=== PATIENT | male | born 1950 | race Caucasian/White ===

== ENCOUNTER 2022-09-30 18:12 | Observation (INO) | payer OTHER, SELFPAY ==
--- NOTE | ~2022-09-30 | XR_ITS ---
EXAMINATION: XR chest 2V DATE: 09/30/2022 19:26 INDICATION: Fever. Altered mental status. TECHNIQUE: Frontal and lateral views of the chest were obtained. COMPARISON: None. FINDINGS: Debbie B lines are noted, consistent mild pulmonary edema. No pleural effusion or pneumotho rax. The heart size is normal. Median sternotomy wires and mediastinal surgical clips are seen, likel y from prior coronary artery bypass grafting. Calcified left hilar lymph nodes are consistent with ol d granulomatous disease. There are old healed right rib fractures. There is mild chronic anterior wed ging of T11 vertebral body. IMPRESSION: 1. Mild pulmonary edema. Reviewed, dictated and finalized at location A. LE WORKER IMPRESSION: 1. Mild pulmonary edema.
--- NOTE | ~2022-09-30 | CT_ITS ---
EXAMINATION: CT brain wo con DATE: 09/30/2022 23:00 INDICATION: Altered mental status. TECHNIQUE: Computed tomography (CT) of the head was performed without intravenous contrast. The mA wa s adjusted according to patient size. Iterative reconstruction technique was employed. The dose-lengt h product was 681.00 mGy-cm. COMPARISON: None FINDINGS: There are old infarcts in the cerebellum bilaterally. There are old infarcts in the bilater al thalami and bilateral basal ganglia. There is an old infarct involving right frontoparietal region and right insula. There is an old infarct in left occipital lobe. There are scattered areas of low a ttenuation in the cerebral white matter. There is no intracranial hemorrhage, acute infarction, or ab normal intracranial mass lesion. There is ex vacuo dilatation of body of right lateral ventricle. The orbits are normal. There is mucosal thickening in the paranasal sinuses. The orbits are normal. Ther e are bilateral otomastoid effusions. IMPRESSION: 1. Multiple old infarcts in the brain. 2. Extensive nonspecific cerebral white matter disease, which likely represents chronic small vessel ischemic disease. 3. Bilateral otomastoid effusions. Reviewed, dictated and finalized at location A. GER SAP
[2022-09-30 18:08] VITALS: BP 184/89; PULSE 93; RESP 28; TEMP 38.3; O2SAT 94
--- NOTE | 2022-09-30 19:10 | ECG_ITS ---
Measurements Intervals [place] Rate: 90 P: 103 WY: 231 QRS: -66 QRSD: 145 T: 112 QT: 387 QTc: 476 Interpretive Statements SINUS RHYTHM WITH FIRST DEGREE AV BLOCK WITH OCCASIONAL SUPRAVENTRICULAR PREMATURE COMPLEXES MARKED LEFT AXIS DEVIATION [QRS AXIS < -30] LEFT BUNDLE BRANCH BLOCK [120+ ms QRS DURATION, 80+ ms Q/S IN V1/V2, 85+ ms R IN I/aVL/V5/V6] NO PREVIOUS ECG AVAILABLE FOR COMPARISON Electronically Signed On 10-01-2022 14:38:51 [employer]EVERAGE DIST[employer]ER by Jason Felton M.D.
[2022-09-30 19:53] LABS: Basophils Percent Auto 0.2 % (0.2-1.2); Hematocrit 38.1 % (42.0-52.0); Hemoglobin 12.1 g/dL (14.0-18.0); Immature Granulocyte Absolute 0.08 K/mm3 (0.00-0.031); Immature Granulocyte Percent A 0.6 % (0-0.5); Lymphocytes Absolute Auto 0.86 K/mm3 (0.9-3.2); Lymphocytes Percent Auto 6.8 % (18.3-44.2); Mean Corpuscular HGB Conc 31.8 g/dl (32-36); Mean Corpuscular Hemoglobin 28.7 pg (26-34); Mean Corpuscular Volume 90.3 fl (80-100); Mean Platelet Volume 9.7 fl (7.4-10.4); Monocytes Absolute Auto 0.6 K/mm3 (0.1-0.6); Monocytes Percent Auto 4.3 % (2.6-8.5); Neutrophils Absolute Auto 11.2 K/mm3 (1.3-6.7); Neutrophils Percent Auto 88.1 % (45.5-73.1); Platelet Count Result 120 k/mm3 (150-375); Red Blood Count 4.22 M/mm3 (4.6-6.20); Red Cell Distribution Width 15.1 % (11.5-14.5); White Blood Count 12.7 K/mm3 (4.5-10.0)
[2022-09-30 19:59] LABS: Alanine Aminotransferase 16 U/L (6-50); Albumin Level 3.8 g/dL (3.5-5.1); Alkaline Phosphatase 77 U/L (38-126); Anion Gap 4 mmol/L (8-16); Aspartate Amino Transferase 18 U/L (17-59); Bilirubin,Total 1.4 mg/dL (0.2-1.3); Blood Urea Nitrogen 15 mg/dL (9-20); Calcium 8.5 mg/dL (8.4-10.2); Carbon Dioxide 29 mmol/L (22-30); Chloride 104 mmol/L (98-107); Estimated Glomerular Filt Rate > 60; Glucose 128 mg/dL (65-110); Potassium 3.8 mmol/L (3.4-5.0); Sodium 137 mmol/L (137-145)
[2022-09-30 20:02] LABS: Lactic Acid Reflex 0.9 mmol/L (0.7-2.0)
[2022-09-30 20:30] LABS: Thyroid Stimulating Hormone 0.533 uIU/mL (0.465-4.680)
[2022-09-30 20:32] LABS: Influenza A QL RT-PCR Negative (Negative); Influenza B QL RT-PCR Negative (Negative); RSV RNA, RT-PCR Negative (Negative); SARS-CoV-2 RNA PCR Negative
[2022-09-30 20:50] LABS: Add Urine Microscopic? YES; Appearance Urine Clear (Clear); Bilirubin Urine 1+ (Negative); Blood Urine 1+ (Negative); Glucose Urine UA Negative (Negative); Ketones Urine Negative (Negative); Leukocyte Esterase Ur Negative LEU/UL (Negative); Nitrate Urine Negative (Negative); Protein Urine 2+ mg/dL (Negative)
[2022-09-30 20:57] LABS: Mucus Urine Rare /lpf; RBC Urine 21-50 /hpf (0-2); Squamous Epithelial Cell Urine Rare /hpf (Few); WBC Urine 0-3 /hpf
--- NOTE | 2022-09-30 20:58 | ED.WEAKNESS ---
HPI - Weakness General Chief complaint: Weakness Stated complaint: increased weakness and confusion Time Seen by Provider: 09/30/22 19:10 History of Present Illness HPI Narrative: Patient was undomiciled presents after his grandson found him extremely weak and confused today, he had been looking better the day before then, but today seemed weak, was barely able to ambulate, and was feeling warm to the touch. Patient has multiple medical issues including STEMI and blood clots for which he is on blood thinners. He states he has been taking all of his medicines. He is denying any pain or symptoms to me Related Data Home Medications Medication Instructions Recorded Confirmed apixaban 5 mg tablet (Eliquis) 5 mg PO BID 09/30/22 09/30/22 aspirin 81 mg tablet,delayed 81 mg PO DAILY 09/30/22 09/30/22 release atorvastatin 80 mg tablet 80 mg PO HS 09/30/22 09/30/22 carvedilol 12.5 mg tablet 12.5 mg PO BID 09/30/22 09/30/22 cholecalciferol (vitamin D3) 125 5,000 unit PO DAILY 09/30/22 09/30/22 mcg (5,000 unit) capsule citalopram 20 mg tablet 20 mg PO DAILY 09/30/22 09/30/22 cyanocobalamin (vitamin B-12) 1,000 mcg PO DAILY 09/30/22 09/30/22 1,000 mcg tablet furosemide 40 mg tablet 40 mg PO DAILY 09/30/22 09/30/22 isosorbide mononitrate 30 mg 30 mg PO DAILY 09/30/22 09/30/22 tablet,extended release 24 hr lisinopril 10 mg tablet 10 mg PO DAILY 09/30/22 09/30/22 tamsulosin 0.4 mg capsule 0.4 mg PO DAILY 09/30/22 09/30/22 Allergies Allergy/AdvReac Type Severity Reaction Status Date / Time No Known Allergies Allergy Verified 09/30/22 21:31 Review of Systems Review of Systems: CONST: No fever. HEENT: No sore throat C/V: No chest pain RESP: No cough GI: No nausea or vomiting : No dysuria. M/S: No joint pain. SKIN: No rash. NEURO: [No headache or focal numbness or weakness] PSYCH: [No depression] [facility] Past Medical History Medical History B12 deficiency BPH (benign prostatic hyperplasia) CHF (congestive heart failure) Coronary artery disease CVA (cerebral vascular accident) Depression Essential hypertension Hyperlipidemia Pulmonary embolism Vascular dementia Surgical History Surgical History Hx of CABG Family History Family History Mother Cancer Father Cancer Social History Social History Social History: The patient states that he lives in a home but the patient has been living at a hotel. His grandson traveled up from [place] to do a wellness check. The grandson used to be the patient's DPOA but he transitioned and gave the DPOA to his cousin Dione since she lived nearby. Smoking status: Never smoker Second hand tobacco smoke exposure: No Alcohol intake: never Substance use: never Substance use type: does not use Lack of Transportation: No Lack of Food: Never True Current Housing: I Have Housing Concerned About Future Housing: No Difficulty Paying Gas/Electric Bills: No Difficulty Paying for Meds: No Currently Unemployed: No Education: High School Diploma/GED Difficulty w/ Childcare or Family Care: No Spiritual care concerns: No Exam Narrative: EXAMINATION OF ORGAN SYSTEMS/BODY AREAS: Constitutional: Vital signs per nursing GENERAL: Appears tachypneic HEAD: Normal with no signs of head trauma. EYES: EOMI, conjunctiva normal LUNGS: labored breathing. HEART: [Regular rate and rhythm] ABD: [Soft], [nontender to palpation] EXT: Normal range of motion SKIN: [No rashes or lesions.] NEURO: [Alert and oriented x 2. No gross focal sensory or strength deficits.] PSYCH: Normal affect Course Vital Signs Vital signs: Vital Signs Temperature 100.9 F H 09/30/22 18:08 Pulse Rate 93 09/30/22 18:08 Respiratory Rate 28 H 09/30/22 18:08 Blood Pressur
[2022-09-30 20:59] LABS: Color Urine Yellow (Yellow)
[2022-09-30 21:47] VITALS: BP 164/70; PULSE 74; RESP 25; O2SAT 96
[2022-09-30 22:31] VITALS: BP 135/63; PULSE 78; RESP 20; O2SAT 95
[2022-09-30 23:16] VITALS: BP 147/69; PULSE 72; RESP 19; O2SAT 96
[2022-09-30 23:31] VITALS: BP 148/78; PULSE 67; RESP 19; O2SAT 96
[2022-09-30 23:32] VITALS: PULSE 67; RESP 19; O2SAT 96
[2022-09-30] MEDS: AZITHROMYCIN 250 MG TABLET 500 MG PO (23:34)
[2022-10-01] VITALS (18 sets, daily range): BP systolic 99–158; BP diastolic 52–75; PULSE 57–88; RESP 16–18; TEMP 36.8–37.3; O2SAT 90–99; BMI 25.0
--- NOTE | 2022-10-01 02:20 | ADMGEN ---
This patient, Colin Ladd, was admitted to IMU Room 204-01. Patient/family oriented to hospital policies and general routines including ID bracelet, bed and alarms, visiting hours, pain management, procedures, bathroom and other care routines, personal items, smoking policy, room service/diet, and visiting hours. Information on how to activate the Rapid Response Team has been discussed. Patient/Family are encouraged to report perceived risks to care and to ask questions if they do not understand what they are told or what they should do.
--- NOTE | 2022-10-01 03:13 | PM.IMHP ---
H&P: HPI History of Present Illness Date/Time: 10/01/22 03:13 Chief Complaint: Altered mental status, fever Narrative: 72-year-old male past medical history of coronary artery disease, CHF, pulmonary embolism and vascular dementia who presented to the ER from [facility] via EMS due to confusion. Source of information is ER records. Evidently patient's grandson told ER staff the patient has vascular dementia and is homeless. The jenae that had come to [facility] this week to help the patient navigate did [facility] appointments. However when he went to see the patient he was more confused and weak. On EMS arrival to scene the patient's glucose was 108 and the patient was noted to be febrile. Labs in the ER demonstrated mild leukocytosis, mildly elevated bilirubin at 1.4 and troponin of 0.4. EKG demonstrated sinus tachycardia with first-degree block occasional super ventricular premature,, left axis deviation and left bundle branch block. No prior EKGs were available for evaluation. No prior labs were available for evaluation. Chest x-ray demonstrated possible pulmonary edema. The patient was alert oriented x2 on arrival to the ER. at the time of my evaluation the patient is there the hospital but could not name the hospital and did not know what city we are in. He could name the president and knew the year but did not know the month. He was hard of hearing. Initially he was admitted for fever of unknown origin but on exam he had brandy purulence noted from the right ear. The patient denied any ear pain, shortness from breath, cough or congestion. However he was noted to be noticeably nasally and had multiple episodes of sneezing while I was in the room. He also had some green mucus to his posterior soft palate at the time of my evaluation with some mild erythema of the posterior oropharynx. He denies sore throat. He reports that he was a former 3 pack per day smoker but denies history of COPD. He was not wheezing on exam. Review of Systems Review of Systems: ROS unobtainable: Yes unobtainable due to mental status [facility] Past Medical History Medical History (Updated 10/01/22 @ 06:41 by Odette Sofia DO) B12 deficiency BPH (benign prostatic hyperplasia) CHF (congestive heart failure) Coronary artery disease CVA (cerebral vascular accident) Depression Essential hypertension Hyperlipidemia Pulmonary embolism Vascular dementia Surgical History Surgical History (Updated 10/01/22 @ 03:36 by Odette Sofia DO) Hx of CABG Family History Family History Mother Cancer Father Cancer Social History Social History (Updated 10/01/22 @ 03:32 by Odette Sofia DO) Social History: The patient states that he lives in a home but the patient has been living at a hotel. His grandson traveled up from [place] to do a wellness check. The grandson used to be the patient's DPOA but he transitioned and gave the DPOA to his cousin Dione since she lived nearby. Smoking status: Never smoker Second hand tobacco smoke exposure: No Alcohol intake: never Substance use: never Substance use type: does not use Lack of Transportation: No Lack of Food: Never True Current Housing: I Have Housing Concerned About Future Housing: No Difficulty Paying Gas/Electric Bills: No Difficulty Paying for Meds: No Currently Unemployed: No Education: High School Diploma/GED Difficulty w/ Childcare or Family Care: No Spiritual care concerns: No Meds Home Medications and Allergies Home Medications Medication Instructions Recorded Confirmed Type apixaban 5 mg tablet (Eliquis) 5 mg PO BID 09/30/22 09/30/22 History aspirin 81 mg tablet,delayed 81 mg PO DAILY 09/30/22 09/30/22 History release atorvastatin 80 mg tablet 80 mg PO HS 09/30/22 09/30/22 History carvedilol 12.5 mg tablet 12.5 mg PO BID 09/30/22 09/30/22 History
[2022-10-01 04:40] LABS: Basophils Percent Auto 0.2 % (0.2-1.2); Eosinophils Percent Auto 0.1 % (0-4.4); Hematocrit 37.2 % (42.0-52.0); Hemoglobin 11.7 g/dL (14.0-18.0); Immature Granulocyte Absolute 0.03 K/mm3 (0.00-0.031); Immature Granulocyte Percent A 0.3 % (0-0.5); Immature Platelet Fraction Pct 2.4 % (0.9-11.2); Lymphocytes Absolute Auto 1.18 K/mm3 (0.9-3.2); Lymphocytes Percent Auto 12.4 % (18.3-44.2); Mean Corpuscular HGB Conc 31.5 g/dl (32-36); Mean Corpuscular Hemoglobin 28.9 pg (26-34); Mean Corpuscular Volume 91.9 fl (80-100); Mean Platelet Volume 9.1 fl (7.4-10.4); Monocytes Absolute Auto 0.6 K/mm3 (0.1-0.6); Neutrophils Absolute Auto 7.7 K/mm3 (1.3-6.7); Platelet Count Result 108 k/mm3 (150-375); Red Blood Count 4.05 M/mm3 (4.6-6.20); Red Cell Distribution Width 15.1 % (11.5-14.5); White Blood Count 9.5 K/mm3 (4.5-10.0)
[2022-10-01 04:55] LABS: Alanine Aminotransferase 13 U/L (6-50); Albumin Level 3.4 g/dL (3.5-5.1); Alkaline Phosphatase 67 U/L (38-126); Anion Gap 4 mmol/L (8-16); Aspartate Amino Transferase 17 U/L (17-59); Bilirubin,Total 1.5 mg/dL (0.2-1.3); Blood Urea Nitrogen 13 mg/dL (9-20); Calcium 8.1 mg/dL (8.4-10.2); Carbon Dioxide 28 mmol/L (22-30); Chloride 104 mmol/L (98-107); Estimated CRCL calculation 89 ml/min; Estimated Glomerular Filt Rate > 60; Glucose 112 mg/dL (65-110); Potassium 3.8 mmol/L (3.4-5.0); Sodium 136 mmol/L (137-145)
[2022-10-01 05:00] LABS: Troponin I 0.034 ng/mL (0.000-0.034)
[2022-10-01 07:20] LABS: Strep Group A RT-PCR DETECTED (Negative)
[2022-10-01] MEDS: AMOXICILLIN/CLAVULANATE K 875-125 MG TAB 1 TABLET PO ×2 (08:33→20:55)
[2022-10-01] MEDS: carvediloL 12.5 MG TABLET PO ×2 (08:33→20:55)
[2022-10-01] MEDS: lisinopriL 10 MG TABLET PO (08:33)
[2022-10-01] MEDS: ASPIRIN 81 MG ENTERIC TABLET PO (08:33)
[2022-10-01] MEDS: CYANOCOBALAMIN 1,000 MCG TABLET 1000 MCG PO (08:33)
[2022-10-01] MEDS: CHOLECALCIFEROL 1,000 UNITS TABLET 5000 UNITS PO (08:33)
[2022-10-01] MEDS: ISOSORBIDE MONONITRATE 30 MG TAB.ER.24H PO (08:34)
[2022-10-01] MEDS: CITALOPRAM HYDROBROMIDE 20 MG TABLET PO (08:34)
[2022-10-01] MEDS: FUROSEMIDE 40 MG TABLET PO (08:34)
[2022-10-01] MEDS: APIXABAN 5 MG TABLET PO ×2 (08:34→16:45)
[2022-10-01] MEDS: TAMSULOSIN HCL 0.4 MG CAPSULE PO (08:34)
[2022-10-01] MEDS: CIPROFLOXACIN HC OTIC 10 ML 3 DROP RIGHT EAR ×2 (09:29→20:55)
--- NOTE | 2022-10-01 10:40 | P.PNIM_ITS ---
Progress Note: A&P Assessment and Plan (1) Sepsis: Code(s): A41.9 - Sepsis, unspecified organism Status: Acute Assessment and Plan: Patient with sepsis present on admission with mild tachypnea, leukocytosis and fever. WBC normal * purulence draining from the right ear canal with exam suggestive of likely perforated eardrum * UA not consistent with UTI. CXR showing mild pulmonary edema. * BCx pending * posterior oral pharyngeal erythema noted with positive strep PCR. * Rocephin and azithromycin started for possible pneumonia but changed to Augmentin and Cipro otic for otitis externa * monitor progress. (2) Elevated troponin: Code(s): R77.8 - Other specified abnormalities of plasma proteins Status: Acute Assessment and Plan: Troponin elevated mildly on admission * Troponin 0.04 and normal on repeat * Likely related to sepsis and not felt to be clinically significant rise. * EKG noted with Left BBB; unclear if this is acute or chronic but suspect chronic. No complaints of chest pain * hx of CAD with CABG. * Continue Lipitor, ASA, Coreg (3) Pulmonary edema: Qualifiers: Chronicity: chronic Qualified Code(s): J81.1 - Chronic pulmonary edema Code(s): J81.1 - Chronic pulmonary edema Status: Acute Assessment and Plan: Patient denies symptoms of shortness of breath and does not appear to be overtly fluid overloaded. * Not on oxygen * Will monitor fluid status closely. * Continue home Lasix. (4) Vascular dementia: Qualifiers: Dementia severity: unspecified severity Dementia behavioral or psychological symptom: with mood disturbance Qualified Code(s): F01.53 - Vascular dementia, unspecified severity, with mood disturbance Code(s): F01.50 - Vascular dementia, unspecified severity, without behavioral disturbance, psychotic disturbance, mood disturbance, and anxiety Status: Acute Assessment and Plan: Pateint with known vascular dementia * Altered mental status felt metabolic encephalopathy related to sepsis with underlying dementia * Continue home Celexa. Patient does have borderline elevated QT interval on EKG related to the Left BBB * patient is being monitored on telemetry. (5) Hyperbilirubinemia: Code(s): E80.6 - Other disorders of bilirubin metabolism Status: Acute Assessment and Plan: Total Bili mildly elevated * Unsure patient's baseline values. * May be chronic in nature of gilberts * Follow (6) Sheltered homelessness: Code(s): Z59.01 - Sheltered homelessness Status: Acute Assessment and Plan: Care coordination consult. * PT OT evaluation regarding possible discharge recommendations. (7) BPH (benign prostatic hyperplasia): Code(s): N40.0 - Benign prostatic hyperplasia without lower urinary tract symptoms Status: Acute Assessment and Plan: Patietn with BPH. * palpable bladder on admission but not appreciated now. * good urine output throughout the night. * postvoid residual ordered * continue home Flomax Plan DVT prophylaxis - Eliquis (hx of PE) Full Code Subjective Date/time seen: 10/01/22 10:40 Interval history: 72yo male with dementia, BPH, CAD and hx of CVA here for altered mental status and fever. Patient denies any chest pain or shortness of breath. No nausea or vomiting. Denies diarrhea. Denies ear pain. Eating okay. No abdominal pain. No dysuria or hematuri
--- NOTE | 2022-10-01 10:40 | PM.IMPN ---
Progress Note: A&P Assessment and Plan (1) Sepsis: Code(s): A41.9 - Sepsis, unspecified organism Status: Acute Assessment and Plan: Patient with sepsis present on admission with mild tachypnea, leukocytosis and fever. WBC normal purulence draining from the right ear canal with exam suggestive of likely perforated eardrum UA not consistent with UTI. CXR showing mild pulmonary edema. BCx pending posterior oral pharyngeal erythema noted with positive strep PCR. Rocephin and azithromycin started for possible pneumonia but changed to Augmentin and Cipro otic for otitis externa monitor progress. (2) Elevated troponin: Code(s): R77.8 - Other specified abnormalities of plasma proteins Status: Acute Assessment and Plan: Troponin elevated mildly on admission Troponin 0.04 and normal on repeat Likely related to sepsis and not felt to be clinically significant rise. EKG noted with Left BBB; unclear if this is acute or chronic but suspect chronic. No complaints of chest pain hx of CAD with CABG. Continue Lipitor, ASA, Coreg (3) Pulmonary edema: Qualifiers: Chronicity: chronic Qualified Code(s): J81.1 - Chronic pulmonary edema Code(s): J81.1 - Chronic pulmonary edema Status: Acute Assessment and Plan: Patient denies symptoms of shortness of breath and does not appear to be overtly fluid overloaded. Not on oxygen Will monitor fluid status closely. Continue home Lasix. (4) Vascular dementia: Qualifiers: Dementia severity: unspecified severity Dementia behavioral or psychological symptom: with mood disturbance Qualified Code(s): F01.53 - Vascular dementia, unspecified severity, with mood disturbance Code(s): F01.50 - Vascular dementia, unspecified severity, without behavioral disturbance, psychotic disturbance, mood disturbance, and anxiety Status: Acute Assessment and Plan: Pateint with known vascular dementia Altered mental status felt metabolic encephalopathy related to sepsis with underlying dementia Continue home Celexa. Patient does have borderline elevated QT interval on EKG related to the Left BBB patient is being monitored on telemetry. (5) Hyperbilirubinemia: Code(s): E80.6 - Other disorders of bilirubin metabolism Status: Acute Assessment and Plan: Total Bili mildly elevated Unsure patient's baseline values. May be chronic in nature of gilberts Follow (6) Sheltered homelessness: Code(s): Z59.01 - Sheltered homelessness Status: Acute Assessment and Plan: Care coordination consult. PT OT evaluation regarding possible discharge recommendations. (7) BPH (benign prostatic hyperplasia): Code(s): N40.0 - Benign prostatic hyperplasia without lower urinary tract symptoms Status: Acute Assessment and Plan: Patietn with BPH. palpable bladder on admission but not appreciated now. good urine output throughout the night. postvoid residual ordered continue home Flomax Plan DVT prophylaxis - Eliquis (hx of PE) Full Code Subjective Date/time seen: 10/01/22 10:40 Interval history: 72yo male with dementia, BPH, CAD and hx of CVA here for altered mental status and fever. Patient denies any chest pain or shortness of breath. No nausea or vomiting. Denies diarrhea. Denies ear pain. Eating okay. No abdominal pain. No dysuria or hematuria. He denies sore throat. Exam Narrative: Tm 100.9 98.2 147/63 81 16 94% ra Gen - NARD HEENT - Right ear canal with purulent fluid noted. Left canal clear and TM with serous fluid. Chest - CTA bilaterally, nml RR CV - RRR S1/S2 with +murmur Abd - Soft, NT/ND, Positive BS Ext - No pedal edema Psych - Nml mood and affect. pleasant and cooperative. INAJA. Mildly confused Skin - Warm and dry Objective Data Vital Signs Vital Signs: Vital Signs - 24 hr 09/30/22 18:0
--- NOTE | 2022-10-01 17:30 | PC.NURSE ---
Addendum entered by Allyson Pike RN 10/01/22 17:34: also reviewed 1200 assessment. Agree with assessment except under HEENT-ear, has drainage present. Original Note: Reviewed student 0800 assessment. agree with assessment except under HEENT- Ear, has drainage present.
[2022-10-01] MEDS: ATORVASTATIN 40 MG TABLET 80 MG PO (20:55)
[2022-10-02] VITALS (7 sets, daily range): BP systolic 124–135; BP diastolic 53–80; PULSE 52–67; RESP 16–22; TEMP 36.4–36.6; O2SAT 93–96
[2022-10-02 04:33] LABS: Basophils Percent Auto 0.7 % (0.2-1.2); Eosinophils Absolute Auto 0.2 K/mm3 (0-0.3); Hematocrit 37.2 % (42.0-52.0); Hemoglobin 11.5 g/dL (14.0-18.0); Immature Granulocyte Absolute 0.02 K/mm3 (0.00-0.031); Immature Granulocyte Percent A 0.3 % (0-0.5); Lymphocytes Absolute Auto 1.83 K/mm3 (0.9-3.2); Lymphocytes Percent Auto 30.6 % (18.3-44.2); Mean Corpuscular HGB Conc 30.9 g/dl (32-36); Mean Corpuscular Hemoglobin 28.6 pg (26-34); Mean Corpuscular Volume 92.5 fl (80-100); Mean Platelet Volume 9.7 fl (7.4-10.4); Monocytes Absolute Auto 0.7 K/mm3 (0.1-0.6); Monocytes Percent Auto 11.7 % (2.6-8.5); Neutrophils Absolute Auto 3.2 K/mm3 (1.3-6.7); Neutrophils Percent Auto 53.7 % (45.5-73.1); Platelet Count Result 103 k/mm3 (150-375); Red Blood Count 4.02 M/mm3 (4.6-6.20); Red Cell Distribution Width 14.9 % (11.5-14.5)
[2022-10-02 04:51] LABS: Alanine Aminotransferase 14 U/L (6-50); Albumin Level 3.3 g/dL (3.5-5.1); Alkaline Phosphatase 66 U/L (38-126); Anion Gap 3 mmol/L (8-16); Aspartate Amino Transferase 18 U/L (17-59); Bilirubin,Total 1.1 mg/dL (0.2-1.3); Blood Urea Nitrogen 15 mg/dL (9-20); Calcium 8.2 mg/dL (8.4-10.2); Carbon Dioxide 31 mmol/L (22-30); Chloride 104 mmol/L (98-107); Estimated CRCL calculation 79 ml/min; Estimated Glomerular Filt Rate > 60; Glucose 111 mg/dL (65-110); Magnesium 2.1 mg/dL (1.6-2.3); Phosphorus 2.9 mg/dL (2.5-4.5); Potassium 3.5 mmol/L (3.4-5.0); Sodium 138 mmol/L (137-145)
[2022-10-02 05:49] LABS: Folic Acid 4.9 ng/mL (2.76->20)
[2022-10-02] MEDS: CHOLECALCIFEROL 1,000 UNITS TABLET 5000 UNITS PO (08:24)
[2022-10-02] MEDS: TAMSULOSIN HCL 0.4 MG CAPSULE PO (08:24)
[2022-10-02] MEDS: AMOXICILLIN/CLAVULANATE K 875-125 MG TAB 1 TABLET PO (08:24)
[2022-10-02] MEDS: lisinopriL 10 MG TABLET PO (08:24)
[2022-10-02] MEDS: CYANOCOBALAMIN 1,000 MCG TABLET 1000 MCG PO (08:24)
[2022-10-02] MEDS: ISOSORBIDE MONONITRATE 30 MG TAB.ER.24H PO (08:24)
[2022-10-02] MEDS: carvediloL 12.5 MG TABLET PO (08:25)
[2022-10-02] MEDS: CIPROFLOXACIN HC OTIC 10 ML 3 DROP RIGHT EAR (08:25)
[2022-10-02] MEDS: FUROSEMIDE 40 MG TABLET PO (08:25)
[2022-10-02] MEDS: ASPIRIN 81 MG ENTERIC TABLET PO (08:25)
[2022-10-02] MEDS: CITALOPRAM HYDROBROMIDE 20 MG TABLET PO (08:25)
[2022-10-02] MEDS: APIXABAN 5 MG TABLET PO (08:25)
--- NOTE | 2022-10-02 10:13 | PM.DS ---
DS: Admitting Diagnosis Discharge Date 10/02/22 Admitting Diagnosis Altered mental status DS: Discharge Diagnosis Discharge Diagnosis (1) Sepsis: Code(s): A41.9 - Sepsis, unspecified organism Status: Acute (2) Elevated troponin: Code(s): R77.8 - Other specified abnormalities of plasma proteins Status: Acute (3) Pulmonary edema: Qualifiers: Chronicity: chronic Qualified Code(s): J81.1 - Chronic pulmonary edema Code(s): J81.1 - Chronic pulmonary edema Status: Acute (4) Vascular dementia: Qualifiers: Dementia severity: unspecified severity Dementia behavioral or psychological symptom: with mood disturbance Qualified Code(s): F01.53 - Vascular dementia, unspecified severity, with mood disturbance Code(s): F01.50 - Vascular dementia, unspecified severity, without behavioral disturbance, psychotic disturbance, mood disturbance, and anxiety Status: Acute (5) Hyperbilirubinemia: Code(s): E80.6 - Other disorders of bilirubin metabolism Status: Acute (6) Sheltered homelessness: Code(s): Z59.01 - Sheltered homelessness Status: Acute (7) BPH (benign prostatic hyperplasia): Code(s): N40.0 - Benign prostatic hyperplasia without lower urinary tract symptoms Status: Acute DS: Summary Hospital Course Reason for hospitalization: 72yo male with dementia, BPH, CAD and hx of CVA here for altered mental status and fever. Please H&P for details. Hospital Course: Patient with sepsis present on admission with mild tachypnea, leukocytosis and fever. WBC was normal. Purulence draining from the right ear canal with exam suggestive of likely perforated eardrum. Sepsis related to otitis media with perforation. No clinical evidence of mastoiditis but CT brain showing bilateral otomastoid effusions (felt to be reactive and not acutely infected). UA not consistent with UTI. CXR showing mild pulmonary edema. BCx no growth to date. Posterior oral pharyngeal erythema noted with positive strep PCR. He was started on Rocephin and azithromycin for possible pneumonia but felt unlikely PNA related. He was changed to Augmentin and Cipro otic for otitis externa. Troponin elevated mildly on admission. Troponin 0.04 and normal on repeat. Likely related to sepsis and not felt to be clinically significant rise. EKG noted with Left BBB; unclear if this is acute or chronic but suspect chronic. No complaints of chest pain. He has a hx of CAD with CABG. We continued Lipitor, ASA, Coreg. Possible Pulmonary edema noted by CXR. Patient denies symptoms of shortness of breath and does not appear to be overtly fluid overloaded.?He remained on room air. We continued his home Lasix. Patient with known vascular dementia. CT of the brain showing multiple old infarcts and extensive nonspecific cerebral white matter disease. Altered mental status felt metabolic encephalopathy related to sepsis with underlying dementia. We continued home Celexa.? Patient does have borderline elevated QT interval on EKG related to the Left BBB. Total Bili mildly elevated but normalized on repeat. Possibly Gilbert's. Patient is homeless and currently staying at a motel with plans for senior care once this is arranged. Patient overall did well and was able to be discharged on 10/02/22 Status at Discharge Cognitive/behavioral status at discharge: Stable. Time Spent with Patient Time attestation: Total time spent providing and/or coordinating discharge services: 35 minutes Time spent: Greater than 30 minutes Exam Narrative: AF 97.5 124/80 67 20 96% ra Gen - NARD HEENT - Right ear canal with cotton in place Chest - CTA bilaterally, nml RR CV - RRR S1/S2 Abd - Soft, NT/ND, Positive BS Ext - No pedal edema Psych - Nml mood and affect. Skin - Warm and dry DS: Data Data Completed and Pending Labs on day of discharge: Labs from last 24 hours 10/02/22 10/02/22 10/02/22 03
--- NOTE | 2022-10-08 10:26 | PC.NURSE ---
Blood cx are negative
== END 2022-10-02 12:38 | disposition home or self-care (01) ==
LOC: ANHED 19:10 → ANHIMU 10-01 01:59 → ANH2MED 10-05 09:14
PROVIDERS: Admitting Provider Internal Medicine; Emergency Provider Emergency Medicine; PCP Internal Medicine; Visit Provider Internal Medicine
DX: A41.9 Sepsis, unspecified organism (principal); R77.8 Other specified abnormalities of plasma proteins; F01.53 Vascular dementia, unspecified severity, with mood disturbance; Z79.01 Long term (current) use of anticoagulants; Z79.82 Long term (current) use of aspirin; E80.6 Other disorders of bilirubin metabolism; J81.1 Chronic pulmonary edema; E53.8 Deficiency of other specified B group vitamins; I25.10 Atherosclerotic heart disease of native coronary artery without angina pectoris; E78.5 Hyperlipidemia, unspecified; Z86.711 Personal history of pulmonary embolism; I50.9 Heart failure, unspecified; I11.0 Hypertensive heart disease with heart failure; Z59.01 Sheltered homelessness; N40.0 Benign prostatic hyperplasia without lower urinary tract symptoms; Z20.822 Contact with and (suspected) exposure to COVID-19
CPT/HCPCS: 36415; 70450; 71046; 80053; 81001; 82607; 82746; 83605; 83735; 84100; 84443; 84484; 85025; 85055; 87040; 87637; 87651; 93005; 96365; 96367; 97161; 97165; 99285; A9270; G0378; J0131; J0696